=== PATIENT | male | born 2000 | race Two or more races ===

== ENCOUNTER 2024-03-25 13:54 | Emergency (ER) | payer OTHER ==
[~2024-03-25] VITALS: Ht 170.2 cm; Wt 81.2 kg
[2024-03-25] MEDS ORDERED: CANDESARTAN CILE8 M1 PO (14:26)
[2024-03-25] MEDS ORDERED: CEFTRIAXONE SODIUM 2,000 MG VIAL IM ONE (14:45)
[2024-03-25] MEDS ORDERED: KETOROLAC TROMETHAMINE 60 MG VIAL IM ONE (14:45)
== END 2024-03-25 16:07 | disposition home or self-care (01) ==
LOC: ER 13:55
DX: S60.410A Abrasion of right index finger, initial encounter (principal); S60.412A Abrasion of right middle finger, initial encounter; W22.8XXA Striking against or struck by other objects, initial encounter; Y93.89 Activity, other specified; Y92.89 Other specified places as the place of occurrence of the external cause